=== PATIENT | female | born 1950 | race Caucasian/White ===

== ENCOUNTER 2020-12-06 06:05 | Emergency (ER) | payer MEDICARE, OTHER ==
[~2020-12-06 06:05] MED LIST: ASPIRIN EC81 MG PO; BENTYL10 MG PO; DEXILANT30 MG PO; ESTRACE1 MG PO; LIPITOR20 MG PO; LOPRESSOR50 MG PO; NEXIUM 40MG CAP40 MG PO; NITROQUIK SL0.4 MG SL; NORVASC2.5 MG PO; SYNTHROID25 MCG PO; VALIUM10 MG PO; ZESTRIL5 MG PO
[2020-12-06] MEDS ORDERED: MEDROL 4MG DOSEP4 MG PO (06:55)
[2020-12-06] MEDS ORDERED: NORCO 5/3251 EACH PO (06:55)
== END 2020-12-06 07:15 | disposition home or self-care (01) ==
LOC: FER 06:05
DX: G56.03 Carpal tunnel syndrome, bilateral upper limbs (principal); F17.200 Nicotine dependence, unspecified, uncomplicated; Z87.39 Personal history of other diseases of the musculoskeletal system and connective tissue; Z88.0 Allergy status to penicillin; Z88.8 Allergy status to other drugs, medicaments and biological substances; Z90.5 Acquired absence of kidney; Z87.19 Personal history of other diseases of the digestive system
CPT/HCPCS: 96372; 99283; J1100; J1885

== ENCOUNTER 2021-02-01 07:45 | Emergency (ER) | payer MEDICARE, OTHER ==
[~2021-02-01 07:45] MED LIST changes: +MEDROL 4MG DOSEP4 MG PO; +NORCO 5/3251 EACH PO
== END 2021-02-01 08:10 | disposition home or self-care (01) ==
LOC: FER 07:45
DX: M06.841 Other specified rheumatoid arthritis, right hand (principal); I10 Essential (primary) hypertension; F17.210 Nicotine dependence, cigarettes, uncomplicated; Z88.0 Allergy status to penicillin; Z88.8 Allergy status to other drugs, medicaments and biological substances; Z87.19 Personal history of other diseases of the digestive system
CPT/HCPCS: 99283; J1885

== ENCOUNTER 2021-03-02 09:45 | Emergency (ER) | payer MEDICARE, OTHER ==
[2021-03-02 11:33] LABS: BASOPHIL 0.5 % (0-2); EOSINOPHIL 2.5 % (0-7); HCT 34.6 % (37.0-47.0); HGB 11.5 g/dl (12.5-16.0); LYMPHOCYTE 9.5 % (15-48); MCH 30.2 pg (25.0-31.0); MCHC 33.2 g/dL (32.0-36.0); MCV 90.8 fL (78.0-100.0); MONOCYTE 6.4 % (0-12); MPV 9.6 fL (6.0-9.5); NEUTROPHIL 80.7 % (41-80); NRBC 0; PLT 415 K/uL (150-400); RBC 3.81 M/uL (4.20-5.40); RDW 13.4 % (11.5-14.0); WBC 12.9 K/uL (4.0-10.5)
[2021-03-02 11:58] LABS: IRON % SATURATION 10.7 %SAT (20-50)
[2021-03-02 12:05] LABS: ALBUMIN 2.5 g/dL (3.4-5.0); BILIRUBIN - TOTAL 0.2 mg/dL (0.2-1.0); BUN/CREAT RATIO (CALC) 21.2 RATIO; C-REACTIVE PROTEIN 6.4 mg/dL (<=0.90); CREATININE 0.8 mg/dL (0.51-0.95); GLOBULIN (CALCULATION) 4.9 g/dL; POTASSIUM 3.6 mmol/L (3.5-5.1); TOTAL PROTEIN 7.4 g/dL (6.4-8.2)
[2021-03-02 13:28] LABS: BILIRUBIN NEGATIVE (NEGATIVE); BLOOD TRACE-INTACT Ery/uL (NEGATIVE); CLARITY CLEAR (CLEAR); COLOR YELLOW (YELLOW); GLUCOSE (U) NORMAL (NORMAL); LEUKOCYTES TRACE Leu/uL (NEGATIVE); NITRITE POSITIVE (NEGATIVE); PROTEIN NEGATIVE (NEGATIVE); UROBILINOGEN 0.2 mg/dL (0.2-1.0)
[2021-03-02 13:30] LABS: BARBITURATES NEGATIVE (NEGATIVE); ECSTASY (MDMA) NEGATIVE (NEGATIVE); MARIJUANA (THC) NEGATIVE (NEGATIVE); METHADONE NEGATIVE (NEGATIVE); OPIATES NEGATIVE (NEGATIVE)
[2021-03-02 13:31] LABS: AMPHETAMINES POSITIVE (NEGATIVE); OXYCODONE NEGATIVE (NEGATIVE)
[2021-03-02 13:41] LABS: BACTERIA 4+; URINARY RBC RARE
[2021-03-02] MEDS ORDERED: PERCOCET 7.5/321 TAB PO (14:29)
[2021-03-02] MEDS ORDERED: PREDNISONE20 MG PO (14:29)
[2021-03-02] MEDS ORDERED: DOXYCYCLINE HY100 MG PO (14:40)
== END 2021-03-02 15:17 | disposition home or self-care (01) ==
LOC: FER 09:45
PROVIDERS: Emergency Medicine
DX: M06.9 Rheumatoid arthritis, unspecified (principal); F17.210 Nicotine dependence, cigarettes, uncomplicated; Z88.0 Allergy status to penicillin; Z88.8 Allergy status to other drugs, medicaments and biological substances
CPT/HCPCS: 36415; 80053; 80305; 81001; 82550; 83540; 83550; 83880; 84145; 84443; 85025; 86140; J1170; J2405; J2930

== ENCOUNTER 2021-05-11 10:53 | Emergency (ER) | payer MEDICARE, OTHER ==
[~2021-05-11] VITALS: Ht 160 cm; Wt 54.4 kg
[~2021-05-11 10:53] MED LIST changes: +DOXYCYCLINE HY100 MG PO; +PERCOCET 7.5/321 TAB PO; +PREDNISONE20 MG PO
[2021-05-11] MEDS ORDERED: MEDROL 4MG DOSEP4 MG PO (11:36)
== END 2021-05-11 12:23 | disposition home or self-care (01) ==
LOC: FER 10:53
DX: M19.042 Primary osteoarthritis, left hand (principal); M19.041 Primary osteoarthritis, right hand; M19.079 Primary osteoarthritis, unspecified ankle and foot; M17.10 Unilateral primary osteoarthritis, unspecified knee; F17.200 Nicotine dependence, unspecified, uncomplicated; Z88.0 Allergy status to penicillin; Z88.6 Allergy status to analgesic agent
CPT/HCPCS: J1885